=== PATIENT | female | born 1970 | race Caucasian/White ===

== ENCOUNTER 2016-12-04 15:46 | Emergency (ER) | payer OTHER ==
[2016-12-04 16:01] VITALS: BP 113/85; PULSE 71; TEMP 98; BMI 33.4
[2016-12-04] MEDS ORDERED: IBUPROFEN 400 MG TABLET (FP) PO ONE ×2 (16:27→16:28)
[2016-12-04] MEDS ORDERED: DIPHTH,PERTUSS(ACELL),TET 0.5 ML DISP.SYRIN IM ONE (16:29)
--- NOTE | 2016-12-04 16:33 | PDOC ---
History of Present Illness - General Chief Complaint: Injury Stated Complaint: FALL/ SWOLLEN LT ANKLE Time Seen by Provider: 12/04/16 16:20 History Source: Patient - History of Present Illness Occurred: reports: this afternoon Pain Location: reports: lower extremity Method of Injury: Yes: fall Past History - Past Medical History Allergies/Adverse Reactions: Allergies Allergy/AdvReac Type Severity Reaction Status Date / Time No Known Allergies Allergy Verified 12/04/16 16:01 Home Medications: Ambulatory Orders NK [No Known Home Medication] 12/04/16 Other medical history: NONE - Psycho/Social/Smoking Cessation Hx Suicidal Ideation: No Smoking History: Never smoked Have you smoked in the past 12 months: No Hx Alcohol Use: Yes (SOCIAL) Drug/Substance Use Hx: No Review of Systems - Review of Systems Musculoskeletal: Yes: Joint Pain, Joint Swelling *Physical Exam - Vital Signs Last Vital Signs Temp Pulse Resp BP Pulse Ox 98.0 F 71 20 113/85 98 12/04/16 15:58 12/04/16 15:58 12/04/16 15:58 12/04/16 15:58 12/04/16 15:58 - Physical Exam General Appearance: Yes: Appropriately Dressed. No: Apparent Distress HEENT: positive: Normal Voice Neck: positive: Supple Respiratory/Chest: negative: Respiratory Distress Extremity: positive: Other (multiple contusion to L leg, +swelling to L mal of L ankle) Integumentary: positive: Dry, Warm Neurologic: positive: Fully Oriented, Alert, Normal Mood/Affect ED Treatment Course - RADIOLOGY Radiology Studies Ordered: Category Date Time Status ANKLE & FOOT-LEFT* [RAD] Stat Radiology 12/04/16 16:27 Ordered KNEE 2 POS-LEFT [RAD] Stat Radiology 12/04/16 16:29 Ordered LEG TIB/FIB-LEFT [RAD] Stat Radiology 12/04/16 16:29 Ordered - Medications Given in the ED: ED Medications Discontinued Medications Generic Name Dose Route Start Last Admin Trade Name Freq PRN Reason Stop Dose Admin Ibuprofen 800 mg 12/04/16 16:27 12/04/16 16:29 Motrin - PO 12/04/16 16:28 800 mg ONCE ONE Administration Medical Decision Making - Medical Decision Making 12/04/16 16:31 46 yo F, p/w LLE pain s/p fall. Pt slipped in her driveway today, landing on bended L knee. States pain more severe to L ankle and unable to bear weight. No head injury. Pt well luz marina and in NAD w/ multiple contusions to L knee/leg w/ moderate swelling to lateral malleolus of L ankle. M/l sprain, r/o fx. Pain control in ED 12/04/16 17:08 Xrays neg for fx. Dc w/ BLANCA, crutches and otc meds for pain 12/04/16 17:10 *DC/Admit/Observation/Transfer Diagnosis at time of Disposition: Ankle sprain Qualifiers: Encounter type: initial encounter Involved ligament of ankle: unspecified ligament Laterality: left Qualified Code(s): S93.402A - Sprain of unspecified ligament of left ankle, initial encounter - Discharge Dispostion Disposition: HOME Condition at time of disposition: Good - Patient Instructions Printed Discharge Instructions: Ankle Sprain Additional Instructions: Elevate extremity and take motrin as needed for pain
== END 2016-12-04 17:26 | disposition home or self-care (01) ==
LOC: JERFT 15:46
PROC: 3E0234Z Introduction of Serum, Toxoid and Vaccine into Muscle, Percutaneous Approach (ICD-10-PCS; principal; 2016-12-04)
DX: S93.402A Sprain of unspecified ligament of left ankle, initial encounter (principal); W18.30XA Fall on same level, unspecified, initial encounter; Y93.9 Activity, unspecified; Y92.008 Other place in unspecified non-institutional (private) residence as the place of occurrence of the external cause
CPT/HCPCS: 73560-TC-LT; 73590-TC-LT; 73610-TC-LT; 73630-TC-LT; 90471; 90715; 99281-25

== ENCOUNTER 2022-04-29 13:39 | Emergency (ER) | payer OTHER ==
[2022-04-29 13:49] VITALS: BMI 34.9
[2022-04-29] MEDS ORDERED: MECLIZINE HCL 25 MG TABLET (FP) PO ONE (14:33)
[2022-04-29] MEDS ORDERED: ACETAMINOPHEN 1000 MG/100 ML BAG IVPB ONE (14:33)
[2022-04-29] MEDS ORDERED: METOCLOPRAMIDE HCL INJECTION 10 MG/2 ML VIAL IVPUSH ONE (14:33)
[2022-04-29] MEDS ORDERED: SODIUM CHLORIDE 0.9% 500 ML INFUS.BAG IV ONE (14:33)
[2022-04-29] MEDS ORDERED: MECLIZINE HCL 25 MG TABLET (FP) ONE (15:17)
[2022-04-29] MEDS ORDERED: METOCLOPRAMIDE HCL INJECTION 10 MG/2 ML VIAL ONE (15:17)
[2022-04-29] MEDS ORDERED: ACETAMINOPHEN INJECTION 100 ML IVPB ONE (15:17)
[2022-04-29 16:43] LABS: BASO % 0.3 % (0-2.0); EOS % 0.2 % (0-4.5); HEMATOCRIT 40.6 % (32.4-45.2); HEMOGLOBIN 13.5 GM/dL (10.7-15.3); LYMPH % 22.7 % (8-40); MCH 29.3 pg (25.7-33.7); MCHC 33.2 g/dl (32.0-36.0); MEAN CELL VOLUME 88.2 fl (80-96); MEAN PLT VOLUME 7.5 fl (7.5-11.1); MONO % 6.8 % (3.8-10.2); PH,URINE 5.5 (5.0-8.0); PLATELET COUNT 316 10^3/uL (134-434); URINE APPEARANCE CLEAR; URINE BILIRUBIN NEGATIVE (NEGATIVE); URINE COLOR YELLOW; URINE GLUCOSE (UA) NEGATIVE (NEGATIVE); URINE KETONE NEGATIVE (NEGATIVE); URINE LEUK ESTERASE NEGATIVE (NEGATIVE); URINE NITRITE NEGATIVE (NEGATIVE); URINE PROTEIN NEGATIVE (NEGATIVE); URINE UROBILINOGEN 0.2 mg/dL (0.2-1.0); WHITE BLOOD COUNT 12.6 K/mm3 (4.0-10.0)
[2022-04-29 16:51] LABS: INR 0.99 (0.83-1.09); PROTHROMBIN TIME (PATIENT) 11.4 SEC (9.7-13.0)
[2022-04-29 17:09] LABS: CALCIUM 8.9 mg/dL (8.5-10.1)
[2022-04-29 17:10] LABS: ALBUMIN 3.8 g/dl (3.4-5.0); BLOOD UREA NITROGEN 14.8 mg/dL (7-18)
[2022-04-29 17:13] LABS: CREATININE 0.6 mg/dL (0.55-1.3)
[2022-04-29 17:14] LABS: BILIRUBIN,TOTAL 0.4 mg/dL (0.2-1); TOT PROT 7.3 g/dl (6.4-8.2)
[2022-04-29 18:16] VITALS: BP 127/68; PULSE 74; RESP 16; TEMP 98
== END 2022-04-29 18:11 | disposition home or self-care (01) ==
LOC: JER 13:39
PROC: 3E033NZ Introduction of Analgesics, Hypnotics, Sedatives into Peripheral Vein, Percutaneous Approach (ICD-10-PCS; principal; 2022-04-29)
PROC: 3E033GC Introduction of Other Therapeutic Substance into Peripheral Vein, Percutaneous Approach (ICD-10-PCS; 2022-04-29)
DX: R10.13 Epigastric pain (principal); R51.9 Headache, unspecified
CPT/HCPCS: 0241U-QW; 36415; 71046-TC-FY; 80053; 81003; 83690; 84439; 84443; 84484; 85025; 85610; 87086; 93005; 93010; 99284-25